=== PATIENT | female | born 1955 | race Caucasian/White ===

== ENCOUNTER → 2017-01-18 | Outpatient (CLI) | payer MEDICAID | LOC: FIMAGING 13:21 | DX: R93.0 Abnormal findings on diagnostic imaging of skull and head, not elsewhere classified (principal) ==

== ENCOUNTER 2017-07-28 16:27 | Emergency (ER) | payer MEDICAID ==
[2017-07-28 16:34] VITALS: O2SAT 94
--- NOTE | 2017-07-28 17:21 | EDPHY ---
H & P Time Seen by Provider: 07/28/17 16:59 HPI/ROS: CHIEF COMPLAINT: cat bite HISTORY OF PRESENT ILLNESS: A 62-year-old female presents emergency department for a recheck of a cat bite to her right hand. Patient was bit 2 days ago, she was seen [facility] by her primary care doctor yesterday and started on Bactrim and Flagyl. She was told to come to the emergency department for any worsening symptoms. The patient reports less swelling and less pain though she has mild spreading of the redness from the outline drawn yesterday. Pt denies fevers and chills. Smoking Status: Former smoker Physical Exam: GEN: Awake, alert, oriented, no acute distress RESP: nl resp effort MSK:right wrist and fingers with full active range of motion, negative [place] signs. Sensation intact to light touch, cap refill less than 2 seconds. SKIN: 2mm puncture wound with scab to dorsal aspect of right hand with surrounding mild swelling and erythema. Mild spreading of erythema beyond outlined border. No lymphangitic streaking, mild tenderness to dorsal hand, no palmar tenderness. Constitutional: Initial Vital Signs Temperature (C) 37.1 C 07/28/17 16:31 Heart Rate 83 07/28/17 16:31 Respiratory Rate 16 07/28/17 16:31 Blood Pressure 124/70 H 07/28/17 16:31 O2 Sat (%) 94 07/28/17 16:31 O2 Delivery Mode Room Air Allergies/Adverse Reactions: Penicillins Allergy (Intermediate, Verified 07/28/17 16:29) Hives Home Medications: Medication Instructions Recorded Hydrochlorothiazide [HCTZ (*)] 25 mg PO DAILY 07/28/17 Losartan Potassium 07/28/17 Sulfamethoxazole/Trimethoprim 1 tab PO BID 07/28/17 [Sulfamethoxazole-Tmp DS] metroNIDAZOLE [Flagyl 500 mg (*)] 500 mg PO BID 07/28/17 MDM/Departure - MDM ED Course/Re-evaluation: Patient with no evidence of tenosynovitis. I have recommended continuing with current antibiotic regimen, warm Epson salt soaks 3 times a day for 5 minutes and return for recheck tomorrow, sooner for worsening symptoms. - Depart Disposition: Home, Routine, Self-Care Clinical Impression: Cellulitis Qualifiers: Site of cellulitis: extremity Site of cellulitis of extremity: upper extremity Laterality: right Qualified Code(s): L03.113 - Cellulitis of right upper limb Condition: Good Instructions: Cellulitis (ED) Additional Instructions: The continue taking your antibiotics as prescribed. Warm Epson salt soaks 3 times a day for 5 minutes. Return to the emergency department tomorrow morning for recheck. Return sooner for any worsening symptoms increased pain, fevers, chills, spreading of redness. Referrals: Ya Montanez MD [Primary Care Provider] - As per Instructions
[2017-07-28 17:37] VITALS: BP 138/90; PULSE 68; RESP 18; TEMP 98.6
== END 2017-07-28 17:38 | disposition home or self-care (01) ==
DX: L03.113 Cellulitis of right upper limb (principal); Z87.891 Personal history of nicotine dependence; W55.01XA Bitten by cat, initial encounter

== ENCOUNTER → 2017-10-05 | Outpatient (CLI) | payer MEDICAID | LOC: FIMAGING 14:49 | PROVIDERS: ATTEND Family Medicine | DX: Z12.31 Encounter for screening mammogram for malignant neoplasm of breast (principal) | CPT/HCPCS: G0202 ==

== ENCOUNTER 2018-10-06 21:22 | Observation (INO) | payer MEDICAID ==
[2018-10-06] MEDS ORDERED: ASPIRIN 81 MG CHEWABLE TAB PO ONE (21:46)
--- NOTE | 2018-10-06 21:59 | EDPHY ---
H & P Stated Complaint: chest palpitaions, sob Time Seen by Provider: 10/06/18 21:44 HPI/ROS: CHIEF COMPLAINT: Right shoulder pain, shortness of breath HISTORY OF PRESENT ILLNESS: 63-year-old female presents with right shoulder pain and shortness of breath. She was sitting on the couch watching TV just SURGICAL ASST , started arguing with her and developed sudden onset of tachycardia, associated with tingling in finger tips, shortness of breath and moderate right shoulder pain. She took losartan and propanolol, followed by vomiting once. She continues to have mild right shoulder pain. The other symptoms have completely resolved. No prior similar symptoms. Cardiac risk factors positive for previous smoking history and hypertension. No family history, diabetes or hypercholesterolemia. REVIEW OF SYSTEMS: complete 10 point ROS reviewed and is negative except for the noted elements in the HPI - Personal History Current Tetanus Diphtheria and Acellular Pertussis (TDAP): Yes - Medical/Surgical History Hx Asthma: No Hx Chronic Respiratory Disease: No Hx Diabetes: No Hx Cardiac Disease: No Hx Renal Disease: No Hx Cirrhosis: No Hx Alcoholism: No Hx HIV/AIDS: No Hx Splenectomy or Spleen Trauma: No Other PMH: chronic back problems. HTN - Family History Significant Family History: No pertinent family hx - Social History Smoking Status: Former smoker Drug Use: None Additional Social History: - Physical Exam Exam: General Appearance: Alert, pleasant Eyes: Pupils equal and round, no conjunctival pallor or injection ENT, Mouth: Mucous membranes moist Neck: Normal inspection Respiratory: Lungs are clear to auscultation Cardiovascular: Regular rate and rhythm Gastrointestinal: Abdomen is soft and nontender Neurological: A&O, nonfocal exam Skin: Warm and dry Extremities: Nontender, no pedal edema; right shoulder-normal inspection, no tenderness, no pain with ROM Psychiatric: Mood and affect normal Constitutional: Initial Vital Signs Temperature (C) 36.7 C 10/06/18 21:27 Heart Rate 100 10/06/18 21:27 Respiratory Rate 20 10/06/18 21:27 Blood Pressure 154/90 H 10/06/18 21:27 O2 Sat (%) 97 10/06/18 21:27 O2 Delivery Mode Room Air Allergies/Adverse Reactions: Penicillins Allergy (Intermediate, Verified 10/06/18 21:26) Hives Home Medications: Medication Instructions Recorded Aspirin [Aspirin 81mg (*)] 81 mg PO DAILY #30 tab.chew 10/07/18 Chlorthalidone [Chlorthalidone 25 25 mg PO DAILY 10/07/18 mg (*)] Losartan Potassium [Cozaar 50 mg 50 mg PO BID 10/07/18 (*)] Propranolol HCl [Inderal 20mg (*)] 20 mg PO BID PRN 10/07/18 amLODIPine BESYLATE [Norvasc 2.5 2.5 mg PO DAILY #30 tab 10/07/18 mg (*)] Medical Decision Making - Diagnostics EKG Interpretation: EKG interpreted by me reveals normal sinus rhythm, rate 93, ST segment depression in leads V3 through V6, c/w ischemia. Interpretation: Abnormal EKG Repeat EKG (after resolution of shoulder pain) interpreted by me reveals NSR, ST segment depression improved in leads V3-V6 Imaging Results: CXR: NAD ED Course/Re-evaluation: This pt presents with rt shoulder pain and abnormal EKG, c/w ischemia. New EKG changes compared to prior EKG in 2015. ASA 324mg given. Initial troponin normal. CXR unremarkable. After resolution of shoulder pain, repeat EKG improved, with less ST segment depression in V3-V6. Given dynamic EKG changes that correlate with pt sx, high concern for ACS. Heparin per wt-based protocol initiated. The hospitalist service was consulted for admission. This pt utilized 35 minutes of critical care time exclusive of unbundled procedures. Time spent in assessment/serial reassessments, test ordering and review, medication ordering, discussions with development consultant. Organ at risk: heart Differential Diagnosis: includes though not limited to ACS, PE, PTX, pneumonia, dissection - Data Points Laboratory Results: Laboratory Results 10/06/18 21:44 10/06/18 21:44 Medications Given: Discontinued Medications Acetaminophen (Tylenol) 650 mg PO Q4HRS PRN PRN Reason: Pain, Mild/Fever, Can Take PO Stop: 04/04/19 23:06 Last Admin: 10/07/18 17:45 Dose: 650 mg Aspirin (Aspirin) 324 mg PO EDNOW ONE Stop: 10/06/18 21:47 Last Admin: 10/06/18 21:51 Dose: 324 mg Aspirin Buffered (Aspirin Ec) 325 mg PO ONCALL ONE Stop: 10/07/18 08:43 Last Admin: 10/07/18 14:03 Dose: Not Given Chlorthalidone (Chlorthalidone) 25 mg PO DAILY HARRIS Stop: 04/05/19 14:14 Last Admin: 10/07/18 14:23 Dose: 25 mg Diazepam (Valium) 5 mg PO ONCALL ONE Stop: 10/07/18 08:43 Last Admin: 10/07/18 14:03 Dose: Not Given Diphenhydramine HCl (Benadryl) 25 mg PO ONCALL ONE Stop: 10/07/18 08:43 Last Admin: 10/07/18 14:04 Dose: Not Given Famotidine (Pepcid) 20 mg PO ONCALL ONE Stop: 10/07/18 08:43 Last Admin: 10/07/18 14:04 Dose: Not Given Heparin Sodium (Porcine) (Heparin Injection) 0 unit IVP EDNOW ONE Stop: 10/06/18 23:07 Last Admin: 10/06/18 23:42 Dose: 5,800 units Heparin Sodium (Porcine) (Heparin 50 Units/Ml (Premix)) 500 mls @ 0 mls/hr IV EDNOW ONE; Per Protocol PRN Reason: Protocol Stop: 10/06/18 23:07 Last Admin: 10/07/18 02:32 Dose: Not Given Heparin Sodium (Porcine) (Heparin 50 Units/Ml (Premix)) 500 mls @ 0 mls/hr IV CONT HARRIS; Per Protocol PRN Reason: Protocol Stop: 04/04/19 23:14 Last Admin: 10/07/18 02:54 Dose: 500 mls Potassium Chloride (Potassium Cl 10 Meq (Premix)) 100 mls @ 100 mls/hr IV Q1H HARRIS Stop: 10/07/18 01:29 Last Admin: 10/07/18 03:09 Dose: Not Given Potassium Chloride (Potassium Cl 10 Meq (Premix)) 100 mls @ 100 mls/hr IV Q1H HARRIS Stop: 10/07/18 04:44 Last Admin: 10/07/18 03:58 Dose: 100 mls Losartan Potassium (Cozaar) 50 mg PO BID HARRIS Stop: 04/05/19 14:14 Last Admin: 10/07/18 14:23 Dose: 50 mg Melatonin (Melatonin) 3 - 6 mg PO HS PRN PRN Reason: Sleep/Insomnia Stop: 04/05/19 01:31 Last Admin: 10/07/18 02:11 Dose: 3 mg Potassium Chloride (Klor-Con) 40 meq PO ONCE ONE Stop: 10/06/18 23:19 Last Admin: 10/06/18 23:36 Dose: 40 meq Potassium Chloride (Klor-Con) 10 - 40 meq PO ONCE ONE PRN Reason: Protocol Stop: 10/07/18 14:10 Last Admin: 10/07/18 14:23 Dose: 20 meq Point of Care Test Results: Chemistry 10/06/18 22:27 POC Troponin I 0.00 ng/mL ng/mL (0.00-0.08) Departure - Departure Disposition: [facility] Inpatient Acute Clinical Impression: Acute coronary syndrome Condition: Serious
[2018-10-06 22:09] LABS: PLATELET COUNT 333 10^3/uL (150-400)
[2018-10-06] MEDS ORDERED: HEPARIN/DEXTROSE 500 ML IV ONE (23:06)
[2018-10-06] MEDS ORDERED: HEPARIN 10,000 UNIT/10 ML MDV (1,000 UNIT/ML) IVP ONE (23:06)
[2018-10-06] MEDS ORDERED: ACETAMINOPHEN 325 MG TAB PO PRN (23:07)
[2018-10-06] MEDS ORDERED: ONDANSETRON 4 MG/2 ML VIAL IVP PRN (23:07)
[2018-10-06] MEDS ORDERED: ONDANSETRON DISINTEGRATING 4 MG TAB PO PRN (23:07)
[2018-10-06] MEDS ORDERED: HEPARIN 10,000 UNIT/10 ML MDV (1,000 UNIT/ML) IVP PRN (23:09)
[2018-10-06] MEDS ORDERED: NITROGLYCERIN 0.4 MG BTL SL PRN (23:09)
--- NOTE | 2018-10-06 23:10 | CPEKG ---
Test Reason : OPEN Blood Pressure : / mmHG Vent. Rate : 081 BPM Atrial Rate : 082 BPM P-R Int : 148 ms QRS Dur : 087 ms QT Int : 388 ms P-R-T Axes : 044 025 016 degrees QTc Int : 451 ms Sinus rhythm Confirmed by Celeste Kenyon ([id number]) on 10/06/2018 11:09:35 PM Referred By: Confirmed By:Celeste Kenyon
[2018-10-06 23:15] LABS: INR 0.97 (0.83-1.16); PROTIME(PATIENT) 13.1 SEC (12.0-15.0)
[2018-10-06] MEDS ORDERED: POTASSIUM CL 20 MEQ TAB PO ONE (23:18)
--- NOTE | 2018-10-06 23:31 | PDGENHP ---
History and Physical - Chief Complaint Shoulder pain - History of Present Illness 63 yo F w/ hx of HTN and anxiety presents with palpitations and shoulder pain. The patient became angry during an argument this evening and she then noticed palpitations or heart racing. Shortly after she developed shortness of breath and pain in her R shoulder. She came in the ED for evaluation. In the ED her ECG is notable for ischemic changes consisting of anterolateral ST depressions. A subsequent ECG showed improvement in these changes. At the time of my evaluation she is pain free. The initial troponin was negative. She denies personal or family hx of CAD. She quit smoking tobacco about 5 years ago. Case discussed with ED physician Dr. Kenyon; records reviewed and summarized above. History Information - Allergies/Home Medication List Allergies/Adverse Reactions: Penicillins Allergy (Intermediate, Verified 10/06/18 21:26) Hives Home Medications: Hydrochlorothiazide [HCTZ (*)] 25 mg PO DAILY 07/28/17 [Last Taken Unknown] Losartan Potassium 07/28/17 [Last Taken Unknown] Sulfamethoxazole/Trimethoprim [Sulfamethoxazole-Tmp DS] 1 tab PO BID 07/28/17 [ Last Taken Unknown] metroNIDAZOLE [Flagyl 500 mg (*)] 500 mg PO BID 07/28/17 [Last Taken Unknown] I have personally reviewed and updated: family history, medical history - Past Medical History hypertension - Surgical History Reports: no pertinent surgical hx - Family History Negative for: CAD - Social History Smoking Status: Former smoker Review of Systems Review of Systems: ROS: 10pt was reviewed & negative except for what was stated in HPI & below Physical Exam Physical Exam: Temp Pulse Resp BP Pulse Ox 36.7 C 94 20 127/100 H 94 10/06/18 21:27 10/06/18 21:41 10/06/18 21:41 10/06/18 21:41 10/06/18 21:41 Constitutional: no apparent distress, not in pain Eyes: PERRL, EOMI Ears, Nose, Mouth, Throat: moist mucous membranes, no oral mucosal ulcers Cardiovascular: regular rate and rhythym, no murmur, rub, or gallop Respiratory: no respiratory distress, clear to auscultation Gastrointestinal: normoactive bowel sounds, soft, non-tender abdomen Skin: warm, normal color Musculoskeletal: full muscle strength, no muscle tenderness Neurologic: AAOx3, CN II-XII Intact Psychiatric: interacting appropriately, not anxious Lab Data & Imaging Review 10/06/18 21:44 10/06/18 21:44 WBC 9.63 10^3/uL (3.80-9.50) H 10/06/18 21:44 RBC 4.88 10^6/uL (4.18-5.33) 10/06/18 21:44 Hgb 15.0 g/dL (12.6-16.3) 10/06/18 21:44 Hct 44.0 % (38.0-47.0) 10/06/18 21:44 MCV 90.2 fL (81.5-99.8) 10/06/18 21:44 MCH 30.7 pg (27.9-34.1) 10/06/18 21:44 MCHC 34.1 g/dL (32.4-36.7) 10/06/18 21:44 RDW 12.8 % (11.5-15.2) 10/06/18 21:44 Plt Count 333 10^3/uL (150-400) 10/06/18 21:44 MPV 9.6 fL (8.7-11.7) 10/06/18 21:44 Neut % (Auto) 58.3 % (39.3-74.2) 10/06/18 21:44 Lymph % (Auto) 34.1 % (15.0-45.0) 10/06/18 21:44 [place] % (Auto) 5.4 % (4.5-13.0) 10/06/18 21:44 Eos % (Auto) 1.2 % (0.6-7.6) 10/06/18 21:44 Baso % (Auto) 0.7 % (0.3-1.7) 10/06/18 21:44 Nucleat RBC Rel Count 0.0 % (0.0-0.2) 10/06/18 21:44 Absolute Neuts (auto) 5.61 10^3/uL (1.70-6.50) 10/06/18 21:44 Absolute Lymphs (auto) 3.28 10^3/uL (1.00-3.00) H 10/06/18 21:44 Absolute Monos (auto) 0.52 10^3/uL (0.30-0.80) 10/06/18 21:44 Absolute Eos (auto) 0.12 10^3/uL (0.03-0.40) 10/06/18 21:44 Absolute Basos (auto) 0.07 10^3/uL (0.02-0.10) 10/06/18 21:44 Absolute Nucleated RBC 0.00 10^3/uL (0-0.01) 10/06/18 21:44 Immature Gran % 0.3 % (0.0-1.1) 10/06/18 21:44 Immature Gran # 0.03 10^3/uL (0.00-0.10) 10/06/18 21:44 PT 13.1 SEC (12.0-15.0) 10/06/18 21:44 INR 0.97 (0.83-1.16) 10/06/18 21:44 APTT 30.3 SEC (23.0-38.0) 10/06/18 21:44 D-Dimer < 0.27 ug/mLFEU (0.00-0.50) 10/06/18 21:44 Sodium 135 mEq/L (135-145) 10/06/18 21:44 Potassium 3.0 mEq/L (3.3-5.0) L 10/06/18 21:44 Chloride 101 mEq/L (97-110) 10/06/18 21:44 Carbon Dioxide 16 mEq/l (22-31) L 10/06/18 21:44 Anion Gap 18 mEq/L (6-14) H 10/06/18 21:44 BUN 21 mg/dL (7-23) 10/06/18 21:44 Creatinine 1.0 mg/dL (0.6-1.0) 10/06/18 21:44 Estimated GFR 56 10/06/18 21:44 Glucose 211 mg/dL (70-100) H 10/06/18 21:44 Calcium 10.1 mg/dL (8.5-10.4) 10/06/18 21:44 POC Troponin I 0.00 ng/mL (0.00-0.08) 10/06/18 22:27 NT-Pro-B Natriuret Pep 76 pg/mL (0-125) 11/30/18 21:44 Imaging Review: Imaging Impressions Chest X-Ray 10/06/18 21:46 Impression: 1. No active cardiopulmonary disease seen. Visualized and Interpreted EKG results: Yes EKG Interpretation: Positive for: normal sinsus rhythm, ST elevation (1 mm AVR) , ST depression (V2-V6) Assessment & Plan Assessment: 63 yo F w/ HTN presents with shoulder pain and ECG changes concerning for ischemia. Plan: 1. Shoulder pain, palpitations - Triggered by emotional state; ECG changes ( personally reviewed/interpreted) concerning for ischemia: ST depression in V2- V6 and [address] elevation in AVR. These changes mostly resolved on subsequent ECG. She is now symptom-free. Initial troponin 0. - Admit to PCU for observation - S/p full dose ASA - Monitor on telemetry, trend cardiac enzymes - Start heparin gtt noting concerning ECG changes - Will consult cardiology in the morning unless symptoms/ECG changes recur, [facility] @ [place] 2. HTN - Continue home medications pending reconciliation 3. Hypokalemia - Replete PRN 4. Hyperglycemia - No hx of DM, will check Hgb A1c. Diet - NPO Code - Full Ppx - Hep gtt Dispo - Admit under observation status
[2018-10-07] MEDS ORDERED: MELATONIN 3 MG TAB PO PRN (01:32)
[2018-10-07] MEDS: POTASSIUM Cl (KCl) 100 ML IV SCH ×3 (02:54→03:58)
[2018-10-07] MEDS: HEPARIN/DEXTROSE 500 ML IV SCH ×2 (02:54)
[2018-10-07 06:01] LABS: PLATELET COUNT 304 10^3/uL (150-400)
[2018-10-07] MEDS ORDERED: TEMAZEPAM 15 MG CAP PO PRN (08:42)
[2018-10-07] MEDS ORDERED: diphenhydrAMINE 25 MG CAP PO ONE (08:42)
[2018-10-07] MEDS ORDERED: DIAZEPAM 5 MG TAB PO ONE (08:42)
[2018-10-07] MEDS ORDERED: ASPIRIN EC 325 MG TAB PO ONE (08:42)
[2018-10-07] MEDS ORDERED: FAMOTIDINE 20 MG TAB PO ONE (08:42)
[2018-10-07] MEDS ORDERED: NS 1,000 ML IV SCH (08:45)
[2018-10-07] MEDS ORDERED: IOPAMIDOL (ISOVUE-370) 150 ML BTL IV ONE (09:04)
[2018-10-07] MEDS ORDERED: LIDOCAINE 1% 300 MG/30 ML SDV ONE (09:04)
--- NOTE | 2018-10-07 09:08 | PDHPUP ---
History & Physical Update H&P update statement: This history and physical update is based on an assessment of the patient which was completed after admission or registration (within 24 hours), but prior to the surgery/procedure. H&P update: H&P reviewed & patient examined, no change in patient's condition since H&P completed
--- NOTE | 2018-10-07 09:09 | PDPROPOC ---
Sedation Plan of Care Sedation Plan of Care: mental status noted, patient educated of risks, benefits , alternatives, patient can tolerate sedation ASA Classification: ASA 2 Planned drugs: fentanyl, midazolam Mallampati Score: Class 2 Mallampati Reference Image: Patient passed 3-3-2 rule?: Yes
[2018-10-07] MEDS ORDERED: fentaNYL 100 MCG/2 ML INJ ONE (09:10)
[2018-10-07] MEDS ORDERED: MIDAZOLAM 2 MG/2 ML VIAL ONE (09:10)
[2018-10-07] MEDS ORDERED: CLOPIDOGREL BISULFATE 75 MG TAB ONE (09:51)
[2018-10-07] MEDS ORDERED: BIVALIRUDIN 250 MG/5 ML VIAL IV ONE (09:51)
[2018-10-07] MEDS ORDERED: NITROGLYCERIN 1,500 MCG/15 ML VIAL MISC ONE (09:55)
--- NOTE | 2018-10-07 09:58 | GCON ---
CARDIOLOGY CONSULTATION REFERRING PHYSICIAN: Aiden Bowling MD SUPERVISING LATHE TURNER: Dr. Ibrahim. INDICATION FOR CARDIOLOGY CONSULTATION: Potential angina equivalent pain, abnormal EKG, elevated troponin level, palpitations. HISTORY OF PRESENT ILLNESS: The patient is a 63-year-old female. She reports that she has significant past history that includes hypertension, essential tremors, pre-diabetes, borderline hyperlipidemia, and previous smoker. The patient reporting up until she had been in her normal state of health. On , she had been noticing fatigue symptoms and muscle weakness. She does state that she had no fevers or chills. She did go to bed early, waking up yesterday feeling fine initially in the morning. She did get in a heated argument with her around 8 p.m. She noted with the argument, her heart rate did accelerate. She is uncertain about the rate. She did develop a right shoulder pain initially, which did radiate into her neck. She became nauseous. She did vomit 1 time. Due to these symptoms, she came to the emergency department for further evaluation. Upon arrival, electrocardiogram was done, noting sinus rhythm, with noted significant inverted T-waves in the anterolateral leads. Initial troponin was less than 0.00. She was symptom- free by the time of arrival to the ED and admitted to the PCU. The patient reports overnight she has been feeling well. She has had no further episodes of shoulder or neck pain. Unfortunately, this morning, with repeated troponin level, it was noted to be elevated up to 0.059. She was started on a heparin drip by the hospitalist services. On continuous cardiac monitoring, she has maintained sinus rhythm, with no malignant arrhythmias or pauses noted. Patient does note that she has been noticing more shortness of breath with exertion over the last year, feeling that this has worsened in the last few months. She denies any prior history of neck/shoulder pain or palpitations that she experienced last evening. She denies any orthopnea, PND, edema, lightheadedness, near-syncope, or syncopal events. Reporting no symptoms suggestive of TIA or CVA. Reports no history of fevers, chills, or night sweats. Cardiac risk factors include age, previous smoker, hypertension, pre- diabetes, borderline hyperlipidemia. She denies any history of PVD or family history of CAD. PAST MEDICAL HISTORY: Includes anxiety, hypertension, essential tremors, pre- diabetes, borderline hyperlipidemia. PAST SURGICAL HISTORY: Reporting no pertinent surgical history. FAMILY HISTORY: Patient reports no significant family history of CAD. SOCIAL HISTORY: Patient reports she and her are working on a [employer]. She is a previous smoker, quitting 15 years ago. She occasionally uses EtOH once or twice a week. She occasionally uses alcohol once or twice a week. She denies any illicit drug use, but occasionally uses marijuana. ALLERGIES: Patient reports allergy to penicillin. HOME MEDICATIONS: Include losartan 50 mg p.o. b.i.d., hydrochlorothiazide 25 mg p.o. daily, propranolol (uncertain of dose at this time). Pharmacy is currently reconciling medications. REVIEW OF SYSTEMS: A 10-point review of systems done on patient; all negative except as mentioned above. PHYSICAL EXAMINATION: GENERAL APPEARANCE: Short statured, well-groomed female. She is alert and oriented to person, place, time, and situation. Appears to be under no acute distress. VITAL SIGNS: Current vital signs are blood pressure of 111/68, heart rate of 71, sinus rhythm on the monitor, respirations 16, saturating 95% on room air, temperature 36.7 degrees Celsius. HEENT: Head is normocephalic. Lips and tongue are pink and moist, with no signs of cyanosis. Conjunctivae pink. NECK: Trachea is midline, +2 carotid pulses bilateral. No auscultated bruits. No jugular vein distention. RESPIRATORY: Lungs are clear to auscultation. No rhonchi, rales or wheezes. No accessory muscle use, no intercostal muscle retraction noted. CARDIAC: Regular rate, regular rhythm, S1, S2, no S3, S4, gallops, rubs or murmurs noted. ABDOMEN: Soft, nontender, bowel sounds x4 quadrants, no organomegaly, no palpable masses. SKIN: [place], warm, dry, no cyanosis, no clubbing, no peripheral edema. VASCULAR: +2 carotids bilateral, +2 radials bilateral, +2 dorsal pedal and posterior tibial pulses bilateral. LABORATORY STUDIES: Laboratory studies drawn this morning show a WBC of 8.90 hemoglobin of 13.2, hematocrit of 38.8, platelet count 340, sodium 138, potassium 3.6, chloride 106, CO2 of 22, BUN 18, creatinine 0.7, glucose 106, calcium 9.3, phosphorus 4.7, magnesium 1.9. On admission, noted INR of 0.9, initial troponin of 0.00, BNP of 76. This morning's troponin was 0.059. Currently pending is a hemoglobin A1c. IMAGING: Electrocardiogram as mentioned above. Chest x-ray showing no acute cardiopulmonary symptoms. ASSESSMENT/PLAN: 1. Shoulder pain radiation into the neck: Triggered by emotional state, patient with noted significant abnormal EKG on admission. Concerning that symptoms may be her angina equivalent. Patient now with an elevated troponin level of 0.059. She has multiple cardiac risk factors. Have discussed with Dr. Ibrahim and is felt best that patient be further evaluated by undergoing cardiac catheterization. Risks and benefits of this procedure were explained to both patient and . They verbalized understanding and are wanting to proceed. We will plan to have the procedure done this morning. She has been started on aspirin therapy. She is on heparin drip, which we will discontinue as she is being taken over to the cardiac cath lab radiology technologist for procedure. 2. Palpitations: Patient does state that she had a significant fast heart rate during her event last evening, but uncertain of what rate was. This was brought on during an emotional state. She denies any lightheadedness, near- syncope or syncopal event. On continuous cardiac monitoring since hospitalization, she has maintained sinus rhythm, with no malignant arrhythmias or pauses. She was noted to be mildly hypokalemic when first coming in, which has been replaced, and currently is normal. Will plan on ordering a TSH level off her a.m. labs that were drawn this morning. Pending results of angiogram, consider patient undergoing outpatient Holter monitoring. May consider echocardiogram post procedure for further evaluation of cardiac structure and function. 3. Hypertension: Blood pressure appears to be well controlled at this time. The patient should be resumed on home medications once medication reconciliation has been done. 4. Essential tremors: Patient reporting history of essential tremors, using p.r.n. propranolol. Pending results of cardiac catheterization, patient may need to be started on a more long-term beta-lizbeth. Thank you for this consultation. We will be glad to follow along with you. /[id number]/MODL [id number]
--- NOTE | 2018-10-07 11:54 | ECHO ---
[email or web address] [address] [address] Main: [phone] Fax: Transthoracic Echocardiogram Name: JORDANA DE OLIVEIRA MR#: [id number] Study Date: 10/07/2018 Study Time: 10:31 AM Date of : 1955 Age: 63 year(s) Height: 162.6 cm (64 in.) Weight: 72.58 kg (160 lb.) BSA: 1.78 m2 Gender: Female Examination: Echo Indication: Chest pain/EKG changes Image Quality: Contrast: Requested by: Aiden Stein BP: 109 mmHg/76 mmHg Heart Rate: Rhythm: Indication: Chest pain/EKG changes Procedure Staff Geomagnetist: Kerry Grove RDCS Reading Physician: Chapito Walsh MD Requesting Provider: Conclusions: Normal global systolic LV function. The ejection fraction is estimated to be 60-65 %. Mild mitral annular calcification. Trivial mitral valve regurgitation. Pulmonary valve not well visualized. Measurements: Chambers Valvular Assessment AV/MV Valvular Assessment TV/PV Normal Normal Normal Name Value Range Name Value Range Name Value Range LVEF (MOD4): 77 % (>=55 %) AV Vmax: 1.16 m/s (1 m/s-1.7 EF Range: 60-65 % m/s) AV meanP mmHg ( - ) MV E Vmax: 0.87 m/s ( - ) MV A Vmax: 0.85 m/s ( - ) MV E/A: 1.02 ( - ) Continued Measurements: Chambers Valvular Assessment AV/MV Name Value Name Value LADs: 3.4 cm MV E' Septal: 0.06 m/s LADs Lon.6 cm MV E/E' Septal: 14.00 LA Area: 16.0 cm2 MV E/E' Lateral: 11.50 Findings: Left Ventricle: Normal size left ventricle. No LV hypertrophy. Normal global systolic LV function. The ejection Patient: JORDANA DE OLIVEIRA Study Date: 10/07/2018 Page 1 of 2 10:31 AM fraction is estimated to be 60-65 %. No regional wall motion abnormality. Normal diastolic LV function. Right Ventricle: Normal size right ventricle. Left Atrium: The left atrium is normal in size. Right Atrium: The right atrium is normal in size. Mitral Valve: Mild mitral annular calcification. Trivial mitral valve regurgitation. Aortic Valve: The aortic valve is normal in appearance and function. Tricuspid Valve: The tricuspid valve is normal in appearance and function. Pulmonic Valve: Pulmonary valve not well visualized. Aorta: The aorta is normal. Pericardium: No pericardial effusion. (No Signature Object) Patient: JORDANA DE OLIVEIRA Study Date: 10/07/2018 Page 2 of 2 10:31 AM [id number]
[2018-10-07] MEDS ORDERED: PROTOCOL POTASSIUM 1 DOSE MISC PRN (12:54)
[2018-10-07] MEDS ORDERED: PROPRANOLOL HCL 20 MG TAB PO PRN (14:04)
[2018-10-07] MEDS ORDERED: POTASSIUM CL 10 MEQ TAB PO ONE (14:09)
[2018-10-07] MEDS ORDERED: CHLORTHALIDONE 25 MG TAB PO SCH (14:15)
[2018-10-07] MEDS ORDERED: LOSARTAN POTASSIUM 50 MG TAB PO SCH (14:15)
[2018-10-07 15:30] VITALS: BP 110/66
--- NOTE | 2018-10-07 20:36 | CPIP ---
DATE OF PROCEDURE: 10/07/2018 CARDIAC CATHETER NOTE REASON FOR PROCEDURE: Non-STEMI. PROCEDURE: 1. Nonselective right groin sheathogram. 2. Bilateral coronary angiography, left heart catheterization as well as left ventricular angiogram. HISTORY: Briefly, this is a 63-year-old female with recent history of worsening shortness of breath, chest pain. Patient apparently had an argument with her , which resulted in significant ches t pain, jaw pain. Patient came to the emergency room where she had significant inferior changes, inf erior ST depressions. Troponin first set was 0.05. Given these findings, patient was consented for left heart catheterization. DESCRIPTION OF PROCEDURE: After informed consent, patient was brought to [facility], where the right groin was prepped, draped in sterile fashion lidocaine a short 6-Tanzanian sheath right common femoral artery, verified angiographically 6-Tanzanian sheath a JL4 catheter was advanc ed to left coronary artery. Images of the left coronary artery revealed short left main with a large left circumflex coming off proximally. Circumflex gave off a marginal 1 proximally which was health y disease and terminated to a marginal 2 artery which was healthy and free of disease. Th is JL4 catheter was switched out for a JL3.5 catheter, given the subselective nature of the catheter in the circumflex system. Images of the LAD showed normal prox LAD giving off a small diagonal 1 art paulette proximally. In the mid distal LAD, there appeared to be a tubular area of 20% to 30% disease but no high-grade stenosis the JL3.5 catheter was removed. The JR4 catheter was advanced to the right coronary artery. Images of right coronary artery revealed a ostial spasm of the vessel wit h intact mid distal RPD and RPLS. We decided to remove this catheter medially and replace it with a JR4 6-Tanzanian guide catheter with side holes to carefully assess the ostial portion of the right coron mariano artery to differentiate between lesion versus spasm. Initially when the guide catheter did sit i nto the right coronary artery, there was some narrowing of the ostial proximal portion. We administe red 300 mcg nitroglycerin IC and took sequential injections. This showed a rapid improvement of the ostial proximal portion of the RCA, indicating that this was most likely significant coronary spasm a nd not any atherosclerotic disease this was verified, this catheter was removed. A pigtai l catheter was advanced to left ventricle. EDP was approximately 12 mmHg MARTINEZ projection s howed EF of 65% with no wall motion abnormalities. No pullback gradient the LV and the ao rta. Pigtail catheter was removed over an 0.035 wire, right groin was closed with 6-Tanzanian Angio-Sea l. Patient tolerated the procedure well with no complications. IMPRESSION: 1. Significant right coronary ostial spasm with no evidence of atherosclerotic disease. 2. Mild 23% disease in mid distal left anterior descending. 3. Normal ejection fraction. PLAN: Given the patient's presentation, she most likely had an acute episode of coronary spasm, resu lting in her EKG changes and chest pain and troponin elevation. Would suggest starting the patient o n Norvasc 2.5 mg p.o. daily and up-titrate as needed to prevent any future coronary spasmodic episode s. /[id number]/MODL
--- NOTE | 2018-10-08 04:44 | GDS ---
DISCHARGE DIAGNOSES: 1. Unstable angina due to coronary vasospasm. 2. Essential tremor. 3. Hypertension. HISTORY: Jeni is a 63-year-old female, who presented with palpitations and shoulder pain with shor tness of breath. Her EKG in the emergency room showed ischemic changes consistent with anterior late ral ST depressions, which subsequently improved on followup EKG. Troponin was borderline. Cardiolog y was consulted. She underwent cardiac catheterization. She does not have coronary disease, but she was found to have vasospasm of her right coronary artery. It was recommended that she initiate Norv asc 2.5 mg p.o. daily as well as daily aspirin. Cardiology will contact her for 48-hour Holter monit oring regarding the palpitation. Her echocardiogram was within normal limits. DISCHARGE MEDICATIONS: Please see computerized record for full detailed list. New medications: 1. Amlodipine 2.5 mg p.o. daily. 2. Aspirin 81 mg p.o. daily. ADDITIONAL DISCHARGE INSTRUCTIONS: 1. Follow up with [facility]. They will contact her on Tuesday for Holter monitor initiation. 2. Standard groin precautions. The patient was seen and examined by me on the day of discharge. /[id number]/MODL
[2018-10-08] MEDS ORDERED: ASPIRIN 81 MG CHEWABLE TAB PO SCH (09:00)
== END 2018-10-07 19:15 | disposition home or self-care (01) ==
LOC: F2W 10-07 00:20
PROVIDERS: ADMIT Student in an Organized Health Care Education/Training Program; ATTEND Internal Medicine
DX: I20.1 Angina pectoris with documented spasm (principal); I10 Essential (primary) hypertension; F41.9 Anxiety disorder, unspecified; Z87.891 Personal history of nicotine dependence; Z88.0 Allergy status to penicillin; E87.6 Hypokalemia; R73.9 Hyperglycemia, unspecified
CPT/HCPCS: 71046; 93005; 93306; 93458; 96374; 96375; 96376; 99285; C1887; G0378; 84484-PO; 85520-90; C1760; J0583; J1644; J2250; J3010; J3480; Q9967

== ENCOUNTER → 2018-10-27 | Outpatient (CLI) | payer MEDICAID | LOC: FIMAGING 14:56 | PROVIDERS: ATTEND Nurse Practitioner Family | DX: I25.10 Atherosclerotic heart disease of native coronary artery without angina pectoris (principal); I72.9 Aneurysm of unspecified site ==

== ENCOUNTER → 2019-02-05 | Outpatient (CLI) | payer MEDICAID | LOC: FIMAGING 14:52 | PROVIDERS: ATTEND Family Medicine | DX: Z12.31 Encounter for screening mammogram for malignant neoplasm of breast (principal); Z80.3 Family history of malignant neoplasm of breast ==